=== PATIENT | female | born 1995 | race African-American/Black ===

== ENCOUNTER 2018-09-04 20:20 | Inpatient (IN) | payer OTHER ==
[~2018-09-04] VITALS: Ht 177.8 cm; Wt 76.3 kg
[2018-09-04] MEDS ORDERED: MICR1TAB16 PO (20:33)
[2018-09-04] MEDS ORDERED: MICROGESTIN PO SCH (21:00)
[2018-09-04 21:08] LABS: HEMOGLOBIN 14.2 g/dl (12.0-15.5); MEAN CORPUSCULAR HEMOGLOBIN 29.9 pg (27.0-33.0); MEAN CORPUSCULAR HGB CONC 31.6 g/dl (32.0-36.5); MEAN CORPUSCULAR VOLUME 94.7 fl (80.0-96.0); PLATELET COUNT, AUTOMATED 183 10^3/uL (150-450); RED BLOOD COUNT 4.75 10^6/uL (4.00-5.40); WHITE BLOOD COUNT 3.9 10^3/uL (4.0-10.0)
[2018-09-04 21:27] LABS: HCG, SERUM QUALITATIVE NEGATIVE (NEGATIVE)
[2018-09-04 21:29] LABS: AMPHETAMINES LEVEL URINE NEGATIVE (NEGATIVE); BARBITURATES URINE NEGATIVE (NEGATIVE); BENZODIAZEPINES URINE NEGATIVE (NEGATIVE); CANNABINOIDS URINE NEGATIVE (NEGATIVE); COCAINE METABOLITE URINE NEGATIVE (NEGATIVE); METHADONE URINE NEGATIVE (NEGATIVE); OPIATES URINE NEGATIVE (NEGATIVE); PHENCYCLIDINE URINE NEGATIVE (NEGATIVE)
[2018-09-04 21:46] LABS: ACETAMINOPHEN LEVEL < 2.0 UG/ML (10.0-30.0); ALBUMIN 3.9 GM/DL (3.2-5.2); ALT/SGPT 24 U/L (12-78); BILIRUBIN,DIRECT 0.1 MG/DL (0.0-0.2); BILIRUBIN,TOTAL 0.4 MG/DL (0.2-1.0); BLOOD UREA NITROGEN 13 MG/DL (7-18); CALCIUM LEVEL 8.5 MG/DL (8.5-10.1); CARBON DIOXIDE LEVEL 29 MEQ/L (21-32); CHLORIDE LEVEL 108 MEQ/L (98-107); CREATININE FOR GFR 1.11 MG/DL (0.55-1.30); ETHYL ALCOHOL (ETHANOL) < 0.003 % (0.000-0.010); GLUCOSE, FASTING 85 MG/DL (70-100); POTASSIUM SERUM 4.2 MEQ/L (3.5-5.1); SALICYLATE LEVEL < 1.7 MG/DL (5.0-30.0); SODIUM LEVEL 142 MEQ/L (136-145); TOTAL PROTEIN 7.3 GM/DL (6.4-8.2)
[2018-09-04] MEDS ORDERED: MAALOX 30 ML SUSP *UDC PO PRN (23:45)
[2018-09-04] MEDS ORDERED: MOM 30ML SUSPENSION UDC PO PRN (23:45)
[2018-09-04] MEDS ORDERED: traZODone 50 MG TAB PO PRN (23:45)
[2018-09-04] MEDS ORDERED: LORazepam 1 MG TAB PO PRN (23:45)
[2018-09-05] MEDS ORDERED: ALLE1TAB23 PO (00:43)
[2018-09-05] MEDS ORDERED: FLON1SPR (00:43)
[2018-09-05] MEDS ORDERED: IBUP1TAB7 PO (00:43)
[2018-09-05] MEDS ORDERED: [UNRECOGNIZED DRUG - CODE] EXT (00:43)
[2018-09-05] MEDS ORDERED: HYDR50TA70 PO (00:43)
[2018-09-05] MEDS ORDERED: ICYCRE EXT (00:43)
[2018-09-05] MEDS ORDERED: MICR1TAB16 PO (00:43)
[2018-09-05] MEDS ORDERED: [UNRECOGNIZED DRUG - CODE] MT (00:43)
[2018-09-05 02:32] VITALS: BP 111/71
[2018-09-05] MEDS: ACETAMINOPHEN TAB 650MG DOSE (2X325MG) PO PRN ×2 (03:14→22:51)
--- NOTE | 2018-09-05 14:48 | HPEPDOC ---
General Date of Admission September 04, 2018 at 23:43 Chief Complaint The patient is a 22-year-old female admitted with a reason for visit of Unspecif ied Depressive Disorder. History of Present Illness Patient is a 22-year-old female, past medical history significant for ADHD, anxiety, depression, panic attacks, sleep disturbance, presenting to the emergency room for suicidal ideation and panic attacks. Patient has been having symptom worsening in the past 2 days. She has had depression for about 6 months now. [place] coping mechanisms. Initially patient states she tried those and felt a little better. However, he started feeling "overwhelmed, upset, which she was brought into the emergency room for further evaluation and management. At time of assessment, she feels okay, but tired Home Medications Scheduled Norethindrone-E.estradiol-Iron (Microgestin Fe 1-20 Tablet) 1 Each Tablet, 1 TAB PO QHS, (Reported) Scheduled PRN Diphenhydramine HCl/Zinc Acet (Benadryl Itch Relief Stick) 14 Ml Solution, 1 DOSE EXT QID PRN for ITCHING/SWELLING, (Reported) Fexofenadine HCl (Fexofenadine HCl) 180 Mg Tablet, 180 MG PO DAILY PRN for ITCHING, (Reported) Fluticasone Propionate (Flonase Allergy Relief) 9.9 Ml [place].susp, 1 SPRAY NA DAILY PRN for NASAL CONGESTION, (Reported) Hydroxyzine HCl (Hydroxyzine HCl) 50 Mg Tablet, 50 MG PO TID PRN for ITCHING, (Reported) Ibuprofen (Ibuprofen) 800 Mg Tablet, 800 MG PO TID PRN for PAIN, (Reported) Menthol (Vicks Vapodrops) 1.7 Mg Lozenge, 1.7 MG MT Q2H PRN for SORE THROAT, (Reported) Methyl Salicylate/Menthol (Icy Hot Cream) 35.4 Gm Cream..g., 1 DOSE EXT QID PRN for PAIN, (Reported) USES ON LOWER BACK NEEDED Allergies Coded Allergies: No Known Drug Allergies (Verified Allergy, Unknown, 09/04/18) A-FIB/CHADSVASC A-FIB History Current/History of A-Fib/PAF?: No Current Oral Anticoagulant The: No Review of Systems Other systems A 10 point pertinent ROS is completed, negative except as stated in the history of presenting illness Physical Examination Other physical findings GENERAL: NAD SKIN : Warm, dry intact HEENT: Atraumatic, normocephalic, PERRL, moist mucous membrane CV: Regular rate and rhythm, S1S2, no JVD, no edema, distal pulses + and palpable RESP: CTAB, no accessory muscle use noted ABDOMEN: BS+, non distended non tender MS: no joint deformities NEURO: Alert and oriented x 3, CN2-12 grossly intact PSYCH: no anxiety or agitation, appropriate mood and affect. Vital Signs Vital Signs Date Time Temp Pulse Resp B/P (MAP) Pulse Ox O2 Delivery O2 Flow Rate FiO2 09/05/18 02:32 97.8 92 18 111/71 97 09/05/18 02:01 Room Air Laboratory Data Labs 24H Laboratory Tests 2 09/04/18 20:54: Nucleated Red Blood Cells % (auto) 0.0, Anion Gap 5L, Calcium Level 8.5, Aspartate Amino Transf (AST/SGOT) 21, Alanine Aminotransferase (ALT/SGPT) 24, Alkaline Phosphatase 60, Total Bilirubin 0.4, Direct Bilirubin 0.1, Total Protein 7.3, Albumin 3.9, Albumin/Globulin Ratio 1.15, Thyroid Stimulating Hormone (TSH) 1.150, Human Chorionic Gonadotropin, Qual NEGATIVE, Salicylates Level < 1.7L, Acetaminophen Level < 2.0L, Ethyl Alcohol Level < 0.003 09/04/18 20:56: Urine Amphetamines Screen NEGATIVE, Urine Benzodiazepines Screen NEGATIVE, Urine Opiates Screen NEGATIVE, Urine Methadone Screen NEGATIVE, Urine Barbiturates Screen NEGATIVE, Urine Phencyclidine Screen NEGATIVE, Urine Cocaine Metabolite Screen NEGATIVE, Urine Cannabinoids Screen NEGATIVE CBC/BMP Laboratory Tests 09/04/18 20:54 Red Blood Count 4.75, Mean Corpuscular Volume 94.7, Mean Corpuscular Hemoglobin 29.9, Mean Corpuscular Hemoglobin Concent 31.6 L, Red Cell Distribution Width 12.2 Assessment/Plan Suicide ideation Anxiety, depression PLAN At this time patient has no medical comorbidities requiring active follow-up. Management of acute mental issues per primary team Plan / VTE VTE Prophylaxis Ordered?: No VTE Exclusion Mechanical Proph: Low Risk for VTE PERLITA GABRIEL September 05, 2018 14:48
--- NOTE | 2018-09-05 15:09 | MHHPEPDOC ---
General Date Of Admission: September 04, 2018 Legal Status: 9.39 Chief Complaint "I'm not suicidal or anything like that, I just think that I had too much on my plate". History of Present Illness HISTORY OF THE PRESENT ILLNESS: Patient is a 22 -year-old , female, who according to ED notes: " PT is AD 9 months and she is not adjusting well. PT states that she has always had some level of depression/anxiety in hindsight but she never felt it was an issue for her until now. PT states that she is always mad or sad and that she cried daily. While in her training she had a roommate that she reported and a SANE case began because the roommate and her GF became hostile towards PT. Once she came to [facility] she no longer has to see that woman. PT states she needs someone to talk to as she doesn't know anyone "I just need a hug". PT states that her mother is a [facility] doctor (in [place]) and she has told PT that she should be admitted. Last night PT was having racing thoughts and panic attack so she called a male friend to come support her. After he was with her for a while he became frustrated telling PT that he cannot help her and she should find someone else to talk to. PT admits that she always want to help other people but she has great difficulty asking for help for herself. She apologizes daily when she doesn't need to and states this upsets people around her. PT denies SI in this moment "Right now? No but I know I will be again". PT was scanning the area during the [facility] and at one point she saw a babcock tester and became anxious she was to be arrested. She admits that she is exhausted from racing thoughts and she wants to find a way to shut it off." Psychiatric Review of Systems Depression (2 or more weeks): suicidal thoughts, other (she denies other symptoms of depression, she is probably minimizing it. She had suicidal ideation a few days ago, but again, she minimizes it, saying it was because she was overwhelmend with other people's problems) Florina (4 or more days of): denies Psychosis: denies PTSD: denies Anxiety: gen/non-specific anxiety, stressor related anxiety Past Psychiatric History Previous Psychiatric Diagnosis: Denies Previous Psychiatric Admissions: Denies Suicide Attempts: Denies Psychiatric Follow-up: [facility] Psychiatric medications: Denies Past Medical History Medical Problems 2 herniated disks in her back Head Injury: No Seizures: No Hospitalizations: No Surgeries: Yes (She had one wisdom tooth removed ) Family Medical/Psychiatric HX Medical Problems she is not aware of Psychiatric Disorders: No Addiction: No Suicide Attemps/Completions: No Addiction History denies Social History Childhood: Was born and raised in [place], [place]. Grew up with her mother, she has siblings, half brother from her father and 2 half brothers from her mother. She enjoyed going to school, in HS she had straight 's Abuse/Trauma: Denies Current Living Situation: Lives on post Education: She went to college last year Employment: [employer] soldier Social Support: parents and her cousin Legal: Denies Marital: Single, no children. Mental Status Examination General Appearance: well groomed, appears stated age, hospital scubs/clothing Build: average Demeanor: guarded Eye Contact: average Activity: average Behavior: cooperative Mood: anxious Affect: constricted, appropriate, congruent, anxious Thought Process: logical/linear Thought Content (Delusions): none reported Thought Content (Other): none reported Thought Content (Aggressive): none reported Perception (Hallucinations): none reported Perception (Other): none reported Cognition (Impairment of): none reported Cognition(Intelligence Est.): average Oriented: Awake, Alert, Oriented times three Insight: poor Judgment: Poor Psychosis: Denies Assessment The patient sees to be minimizing her symptoms, she says she just feels homesick and she has planned to go to [place] on Tuesday. she says that she is not suicidal, she was overwhelmed last Tuesday because she has been listening to all the people around her that had problems and it became too much for her. She has been bullied by two women in the [employer] and she says she never had that experience before. She says that her mother told her to come to the hospital because her mother thinks that she needs medications. She admits to feel anxious and says th at recently she had suicidal ideation but it was a one time event and she has not felt like that anymore. She says that her mother frequently says that one of her problems is that it is like it is either her way or no other and she says it is not exactly that way, she just likes things done properly. she says she wants to be in the [employer] because she always wanted to be a woman in uniform. Her stepf ather is in the [employer], she has a cousin who is in the [employer] and her mother is a Physician who works for the [employer]. I will start her on Zoloft 25 mgs PO daily Initial Treatment Plan 1. Patient was admitted on a [9.39] status. 2. Complete history was obtained. 3. With patients permission, family will be contacted and database will be expanded. 4. Patients medication regimen will be reviewed and changed accordingly. 5. Patient will be provided with protected environment. 6. Patient will be treated with individual, group, and milieu therapies. 7. Patient will receive supportive psych-education. 8. Discharge planning will commence immediately. 9. Outpatient follow-up treatment will be strongly recommended. 10. The initial treatment plan will focus initially on: * Depression. * anxiety * Risk for suicide. ESTIMATED LENGTH OF STAY: 3-5 DAYS. TIME SPENT COUNSELING AND COORDINATING INITIAL CARE: minutes. Vital Signs Vital Signs Date Time Temp Pulse Resp B/P (MAP) Pulse Ox O2 Delivery O2 Flow Rate FiO2 09/05/18 02:32 97.8 92 18 111/71 97 09/05/18 02:01 Room Air Laboratory Data 24H Labs Laboratory Tests 2 09/04/18 20:54: Nucleated Red Blood Cells % (auto) 0.0, Anion Gap 5L, Calcium Level 8.5, Aspartate Amino Transf (AST/SGOT) 21, Alanine Aminotransferase (ALT/SGPT) 24, Alkaline Phosphatase 60, Total Bilirubin 0.4, Direct Bilirubin 0.1, Total Protein 7.3, Albumin 3.9, Albumin/Globulin Ratio 1.15, Thyroid Stimulating Hormone (TSH) 1.150, Human Chorionic Gonadotropin, Qual NEGATIVE, Salicylates Level < 1.7L, Acetaminophen Level < 2.0L, Ethyl Alcohol Level < 0.003 09/04/18 20:56: Urine Amphetamines Screen NEGATIVE, Urine Benzodiazepines Screen NEGATIVE, Urine Opiates Screen NEGATIVE, Urine Methadone Screen NEGATIVE, Urine Barbiturates Screen NEGATIVE, Urine Phencyclidine Screen NEGATIVE, Urine Cocaine Metabolite Screen NEGATIVE, Urine Cannabinoids Screen NEGATIVE CBC/BMP Laboratory Tests 09/04/18 20:54 Red Blood Count 4.75, Mean Corpuscular Volume 94.7, Mean Corpuscular Hemoglobin 29.9, Mean Corpuscular Hemoglobin Concent 31.6 L, Red Cell Distribution Width 12.2 Medications Scheduled Norethindrone-E.estradiol-Iron (Microgestin Fe 1-20 Tablet) 1 Each Tablet, 1 TAB PO QHS, (Reported) Scheduled PRN Diphenhydramine HCl/Zinc Acet (Benadryl Itch Relief Stick) 14 Ml Solution, 1 DOSE EXT QID PRN for ITCHING/SWELLING, (Reported) Fexofenadine HCl (Fexofenadine HCl) 180 Mg Tablet, 180 MG PO DAILY PRN for ITCHING, (Reported) Fluticasone Propionate (Flonase Allergy Relief) 9.9 Ml [place].susp, 1 SPRAY NA DAILY PRN for NASAL CONGESTION, (Reported) Hydroxyzine HCl (Hydroxyzine HCl) 50 Mg Tablet, 50 MG PO TID PRN for ITCHING, (Reported) Ibuprofen (Ibuprofen) 800 Mg Tablet, 800 MG PO TID PRN for PAIN, (Reported) Menthol (Vicks Vapodrops) 1.7 Mg Lozenge, 1.7 MG MT Q2H PRN for SORE THROAT, (Reported) Methyl Salicylate/Menthol (Icy Hot Cream) 35.4 Gm Cream..g., 1 DOSE EXT QID PRN for PAIN, (Reported) USES ON LOWER BACK NEEDED Allergies Coded Allergies: No Known Drug Allergies (Verified Allergy, Unknown, 09/04/18) MALGORZATA VYAS MD September 05, 2018 15:09
[2018-09-05] MEDS: SERTRALINE HCL 25 MG TABLET PO SCH (15:11)
[2018-09-05 18:00] VITALS: BP 95/58
[2018-09-05] MEDS: MICROGESTIN PO SCH (21:04)
[2018-09-06 07:19] VITALS: BP 112/57
[2018-09-06] MEDS: ACETAMINOPHEN TAB 650MG DOSE (2X325MG) PO PRN ×3 (08:01→23:02)
[2018-09-06] MEDS: SERTRALINE HCL 25 MG TABLET PO SCH (08:01)
[2018-09-06 11:39] VITALS: BP 142/79
[2018-09-06 18:41] VITALS: BP 141/70
[2018-09-06] MEDS: MICROGESTIN PO SCH (20:47)
[2018-09-07 06:43] VITALS: BP 113/56
[2018-09-07] MEDS: SERTRALINE HCL 25 MG TABLET PO SCH (08:46)
[2018-09-07] MEDS: ACETAMINOPHEN TAB 650MG DOSE (2X325MG) PO PRN (08:50)
[2018-09-07] MEDS ORDERED: SERT25TA88 PO (10:08)
--- NOTE | 2018-09-08 14:26 | MHIPNPDOC ---
[facility] Progress Note Progress Note DATE OF SERVICE: 09/06/18 HISTORY: Patient is a 22 -year-old , female, who according to ED notes: " PT is AD 9 months and she is not adjusting well. PT states that she has always had some level of depression/anxiety in hindsight but she never felt it was an issue for her until now. PT states that she is always mad or sad and that she cried daily. While in her training she had a roommate that she reported and a SANE case began because the roommate and her GF became hostile towards PT. Once she came to [facility] she no longer has to see that woman. PT states she needs someone to talk to as she doesn't know anyone "I just need a hug". PT states that her mother is a [facility] doctor (in [place]) and she has told PT that she should be admitted. Last night PT was having racing thoughts and panic attack so she called a male friend to come support her. After he was with her for a while he became frustrated telling PT that he cannot help her and she should find someone else to talk to. PT admits that she always want to help other people but she has great difficulty asking for help for herself. She apologizes daily when she doesn't need to and states this upsets people around her. PT denies SI in this moment "Right now? No but I know I will be again". PT was scanning the area during the [facility] and at one point she saw a wire weaver helper and became anxious she was to be arrested. She admits that she is exhausted from racing thoughts and she wants to find a way to shut it off." VITAL SIGNS: See below. NEW TEST RESULTS: See results CURRENT MEDICATIONS: See below. MENTAL STATUS EXAMINATION: Patient is a 22-year old female, who is alert, cooperative, anxious, distracted at times, with difficulty establishing eye contact Speech: Is spontaneous, fluent, normal rate, tone and volume. Language skills are fair. Thought processes including: sometimes it seems as if she has trouble processing some information, some delayed responses. Thought content: anxious thoughts, goal orientated about going to college in the future, going home for a visit. Denies SI, denies HI, denies AV hallucinations, denies thought delusions. Description of abnormal or psychotic thoughts: As above Judgment: fair Insight: fair. Orientation: x 3. Recent and remote memory: intact. Attention span and concentration: fair. Language: Sinhala. Fund of knowledge: average. Mood: anxious. Affect: anxious, congruent with mood. DIAGNOSES: 1. Other specified depressive disorder 2. Other specified anxiety disorder 3. OCD traits ASSESSMENT: Patient is feeling better, she is not homicidal, not suicidal and not psychotic. she will be discharged on the . Her DUANE said they think she is a very low risk patient but they have noticed she has been having problems being independent, it's been hard for her to adapt to the [employer]. MANAGEMENT PLAN: will continue on sertraline 25 mgs Po QAM and will d/c tomorrow TIME SPENT: 15 minutes. Vital Signs Vital Signs Date Time Temp Pulse Resp B/P (MAP) Pulse Ox O2 Delivery O2 Flow Rate FiO2 09/07/18 06:43 97.8 69 12 113/56 (75) 09/05/18 02:32 97 09/05/18 02:01 Room Air Current Medications Current Medications Acetaminophen (Tylenol Tab) 650 mg Q6HP PRN PO HEADACHE or DISCOMFORT Last administered on 09/07/18at 08:50; Start 09/04/18 at 23:45; Stop 09/07/18 at 12:17; Status DC Al Hydrox/Mg Hydrox/Simethicone (Mylanta) 30 ml Q4HP PRN PO HEARTBURN/INDIGESTION; Start 09/04/18 at 23:45; Stop 09/07/18 at 12:17; Status DC Home Med (Med Rec Complete!) ASDIRECTED XX ; Start 09/05/18 at 00:45; Stop 09/05/18 at 00:47; Status DC Lorazepam (Ativan) 1 mg Q4HP PRN PO ANXIETY; Start 09/04/18 at 23:45; Stop 09/07/18 at 12:17; Status DC Magnesium Hydroxide (Milk Of Magnesia) 30 ml DAILYPRN PRN PO CONSTIPATION; Start 09/04/18 at 23:45; Stop 09/07/18 at 12:17; Status DC Patient Own Medication (Patient'S Own Med) 1 TAB QHS PO Last administered on 09/06/18at 20:47; Start 09/05/18 at 21:00; Stop 5/9/19 at 12:17; Status DC Patient Own Medication (Patient'S Own Med) ONE TAB QHS PO Last administered on 09/04/18at 23:00; Start 09/04/18 at 21:00; Stop 09/05/18 at 02:38; Status DC Sertraline HCl (Zoloft) 25 mg DAILY PO Last administered on 09/07/18at 08:46; Start 09/05/18 at 09:00; Stop 09/07/18 at 12:17; Status DC Trazodone HCl (Desyrel) 50 mg QHSP PRN PO INSOMNIA; Start 09/04/18 at 23:45; Stop 09/07/18 at 12:17; Status DC Allergies Coded Allergies: No Known Drug Allergies (Verified Allergy, Unknown, 09/04/18) MALGORZATA VYAS MD September 08, 2018 14:26
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
== END 2018-09-07 11:57 | disposition home or self-care (01) | DRG 885 ==
LOC: M ED 20:20 → M ED INP 23:43 → M PSY 09-05 02:25
PROVIDERS: ADMIT Psychiatry & Neurology Psychiatry; ATTEND Psychiatry & Neurology Psychiatry
DX: F32.89 Other specified depressive episodes (principal); F41.8 Other specified anxiety disorders; Z79.899 Other long term (current) drug therapy

== ENCOUNTER 2019-04-25 10:08 | Emergency (ER) | payer OTHER ==
[~2019-04-25] VITALS: Ht 177.8 cm; Wt 80.9 kg
[~2019-04-25 10:08] MED LIST: ALLE1TAB23 PO; FLON1SPR; HYDR50TA70 PO; IBUP1TAB7 PO; ICYCRE EXT; MICR1TAB16 PO; SERT25TA21 PO; [UNRECOGNIZED DRUG - CODE] EXT; [UNRECOGNIZED DRUG - CODE] MT
[2019-04-25 10:09] VITALS: BP 113/67
[2019-04-25] MEDS ORDERED: AMOX500C PO (10:32)
[2019-04-25] MEDS ORDERED: AMOXICILLIN 500 MG CAP PO ONE (10:45)
== END 2019-04-25 10:39 | disposition home or self-care (01) ==
LOC: M ED 10:08
DX: J01.00 Acute maxillary sinusitis, unspecified (principal); Z79.2 Long term (current) use of antibiotics